=== PATIENT | female | born 1935 | race Two or more races ===

== ENCOUNTER 2018-02-21 13:56 | Inpatient (IN) | payer OTHER ==
[~2018-02-21] VITALS: Ht 152.4 cm; Wt 49.9 kg
[2018-02-21 14:27] LABS: Basophils # (auto) 0 uL; Basophils % (auto) 0.3 % (0.0-2.0); Eosinophils # (auto) 0.1 uL; Eosinophils % (auto) 1.3 % (0.0-7.0); Hematocrit 36.3 % (36.0-46.0); Hemoglobin 12.2 g/dL (12.2-16.2); Lymphocytes # (auto) 0.9 uL; Lymphocytes % (auto) 15.6 % (10.0-50.0); Mean Corpuscular Hemoglobin 31.7 pg (28.0-32.0); Mean Corpuscular Hgb Conc. 33.7 g/dL (32.0-36.0); Mean Corpuscular Volume 93.9 fL (80.0-100.0); Monocytes # (auto) 0.4 uL; Monocytes % (auto) 7.3 % (0.0-12.0); Neutrophils # (auto) 4.4 uL; Neutrophils % (auto) 75.5 % (37.0-80.0); Platelet Count (auto) 161 10^3/uL (140-450); Red Blood Cells 3.86 10^6/uL (4.0-5.20); Red Cell Distribution Width 13.8 % (11.8-14.3); White Blood Cell 5.8 10^3/uL (4.4-10.8)
[2018-02-21 14:49] LABS: BUN/Creatinine Ratio 17.4; Bilirubin, Total 0.4 mg/dL (0.2-1.0); Calcium 8.2 mg/dL (8.5-10.1); Magnesium 2.5 mg/dL (1.6-2.6); Potassium 4.5 mmol/L (3.5-5.1)
[2018-02-21] MEDS ORDERED: BENA10TA9 PO (15:19)
[2018-02-21] MEDS ORDERED: METO-158 PO (15:19)
[2018-02-21] MEDS ORDERED: FURO40TA4 PO (15:19)
[2018-02-21] MEDS ORDERED: DONETAB5 PO (15:19)
[2018-02-21] MEDS ORDERED: ATOR10TA PO (15:20)
[2018-02-21] MEDS ORDERED: SPIR25TA89 PO (15:20)
[2018-02-21 15:52] LABS: INR 0.93 (0.9-1.15); Partial Thromboplastin Time 34.6 sec (23.78-33.04)
[2018-02-21 16:56] LABS: Urine Bacteria NONE SEEN /hpf (None Seen); Urine Blood Negative /uL (Negative); Urine Specific Gravity 1.009 (1.001-1.035); Urine WBC 1 /hpf (0 - 5)
[2018-02-21] MEDS ORDERED: TEMAZEPAM 15 MG CAP PO PRN (22:15)
[2018-02-21] MEDS ORDERED: ONDANSETRON HCL 4 MG/2 ML VIAL IV PRN (22:15)
[2018-02-21] MEDS ORDERED: HYDROcodone-ACET 5/325MG TAB PO PRN (22:15)
[2018-02-21] MEDS ORDERED: SODIUM CHLORIDE 0.9% 250 ML IV ONE (22:15)
[2018-02-21] MEDS ORDERED: ACETAMINOPHEN 500 MG TAB PO PRN (22:15)
[2018-02-21 22:45] VITALS: BP 97/47
[2018-02-22] MEDS ORDERED: SODIUM CHLORIDE 0.9% 250 ML IV ONE (01:45)
[2018-02-22 05:00] VITALS: BP 100/55
[2018-02-22] MEDS ORDERED: FUROSEMIDE 20 MG TAB PO SCH (06:00)
[2018-02-22 07:02] LABS: Basophils # (auto) 0 uL; Basophils % (auto) 0.4 % (0.0-2.0); Eosinophils # (auto) 0.2 uL; Eosinophils % (auto) 2.9 % (0.0-7.0); Hematocrit 35.4 % (36.0-46.0); Hemoglobin 11.9 g/dL (12.2-16.2); Lymphocytes # (auto) 1.1 uL; Lymphocytes % (auto) 19.3 % (10.0-50.0); Mean Corpuscular Hemoglobin 32.3 pg (28.0-32.0); Mean Corpuscular Hgb Conc. 33.7 g/dL (32.0-36.0); Mean Corpuscular Volume 95.7 fL (80.0-100.0); Monocytes # (auto) 0.5 uL; Monocytes % (auto) 8.4 % (0.0-12.0); Neutrophils # (auto) 3.9 uL; Nucleated Red Blood Cells % 0.1 %; Platelet Count (auto) 140 10^3/uL (140-450); Red Cell Distribution Width 14.1 % (11.8-14.3); White Blood Cell 5.7 10^3/uL (4.4-10.8)
[2018-02-22 07:12] LABS: Calcium 7.7 mg/dL (8.5-10.1); Potassium 4.1 mmol/L (3.5-5.1)
[2018-02-22 08:00] VITALS: BP 113/55
[2018-02-22 09:00] VITALS: BP 113/55
[2018-02-22] MEDS ORDERED: METOPROLOL TARTRATE 50 MG TAB PO SCH (10:00)
[2018-02-22] MEDS ORDERED: LACTULOSE 20Gm/30ML SOLN PO SCH (10:00)
[2018-02-22 13:00] VITALS: BP 112/64
[2018-02-22 15:03] VITALS: BP 112/64
[2018-02-22 17:00] VITALS: BP 121/60
[2018-02-22] MEDS ORDERED: ATORVASTATIN 20 MG TAB PO SCH (22:00)
[2018-02-22] MEDS ORDERED: DONEPEZIL HYDROCHLORIDE 5 MG TAB PO SCH (22:00)
[2018-02-27] MEDS ORDERED: PIOG30TA37 PO (12:11)
== END 2018-02-22 17:50 | disposition home or self-care (01) | DRG 314 ==
LOC: ER 13:56 → EDBD 13:56 → OVERFLOW 13:57 → WEST WING 22:41
PROVIDERS: ADMIT Nurse Practitioner Family; ATTEND Nurse Practitioner Family
DX: I95.9 Hypotension, unspecified (principal); I50.43 Acute on chronic combined systolic (congestive) and diastolic (congestive) heart failure; N17.9 Acute kidney failure, unspecified; I13.0 Hypertensive heart and chronic kidney disease with heart failure and stage 1 through stage 4 chronic kidney disease, or unspecified chronic kidney disease; E87.1 Hypo-osmolality and hyponatremia; I25.10 Atherosclerotic heart disease of native coronary artery without angina pectoris; N18.9 Chronic kidney disease, unspecified; Z82.49 Family history of ischemic heart disease and other diseases of the circulatory system; Z95.0 Presence of cardiac pacemaker; Z95.5 Presence of coronary angioplasty implant and graft; F03.90 Unspecified dementia, unspecified severity, without behavioral disturbance, psychotic disturbance, mood disturbance, and anxiety; E86.0 Dehydration; E11.22 Type 2 diabetes mellitus with diabetic chronic kidney disease; Z90.49 Acquired absence of other specified parts of digestive tract; R19.7 Diarrhea, unspecified
CPT/HCPCS: 36415; 51702; 71045; 80048; 80053; 81001; 83036; 83735; 83880; 84484; 85025; 85610; 85730; 93005; 94761

== ENCOUNTER 2018-02-27 11:22 | Inpatient (IN) | payer OTHER ==
[~2018-02-27] VITALS: Ht 157.5 cm; Wt 41.6 kg
[~2018-02-27 11:22] MED LIST: ATOR10TA PO; BENA10TA9 PO; DONETAB5 PO; FURO40TA4 PO; METO-158 PO; SPIR25TA8 PO
[2018-02-27] MEDS ORDERED: SODIUM CHLORIDE 0.9% 1,000 ML IVB ONE (11:58)
[2018-02-27] MEDS ORDERED: APIX5TAB PO (12:07)
[2018-02-27] MEDS ORDERED: SITA50TA PO (12:07)
[2018-02-27] MEDS ORDERED: METF-371 PO (12:07)
[2018-02-27] MEDS ORDERED: BENA20TA14 PO (12:09)
[2018-02-27] MEDS ORDERED: PIOG1TAB37 PO (12:11)
[2018-02-27] MEDS ORDERED: METO-158 PO (12:11)
[2018-02-27] MEDS ORDERED: GLIM4TAB42 PO (12:13)
[2018-02-27 13:32] LABS: Basophils # (auto) 0 uL; Basophils % (auto) 0.3 % (0.0-2.0); Eosinophils # (auto) 0 uL; Hematocrit 35.4 % (36.0-46.0); Hemoglobin 11.6 g/dL (12.2-16.2); Lymphocytes # (auto) 0.8 uL; Lymphocytes % (auto) 13.7 % (10.0-50.0); Mean Corpuscular Hemoglobin 31.2 pg (28.0-32.0); Mean Corpuscular Hgb Conc. 32.9 g/dL (32.0-36.0); Mean Corpuscular Volume 94.9 fL (80.0-100.0); Monocytes # (auto) 0.4 uL; Monocytes % (auto) 6.7 % (0.0-12.0); Neutrophils # (auto) 4.4 uL; Neutrophils % (auto) 79.3 % (37.0-80.0); Platelet Count (auto) 227 10^3/uL (140-450); Red Blood Cells 3.73 10^6/uL (4.0-5.20); Red Cell Distribution Width 13.9 % (11.8-14.3); White Blood Cell 5.6 10^3/uL (4.4-10.8)
[2018-02-27 13:46] LABS: INR 0.92 (0.9-1.15); Partial Thromboplastin Time 35.9 sec (23.78-33.04); Prothrombin Time 9.9 sec (9.27-12.13)
[2018-02-27 13:55] LABS: Albumin 2.9 g/dL (3.4-5.0); BUN/Creatinine Ratio 22.6; Bilirubin, Total 0.3 mg/dL (0.2-1.0); Calcium 8.7 mg/dL (8.5-10.1); Magnesium 2.4 mg/dL (1.6-2.6); Total Protein 7.5 g/dL (6.4-8.2)
[2018-02-27] MEDS ORDERED: cefTRIAXone 1GM/10ml IVPUSH 10 ML IV ONE (16:45)
[2018-02-27] MEDS ORDERED: DEXTROSE (50%) 50ML SYRG IV PRN (16:45)
[2018-02-27] MEDS ORDERED: ACETAMINOPHEN 325 MG TAB PO PRN (17:00)
[2018-02-27] MEDS ORDERED: NITROGLYCERIN 0.4 MG SL TAB SL PRN (17:00)
[2018-02-27] MEDS ORDERED: ONDANSETRON HCL 4 MG/2 ML VIAL IV PRN (17:00)
[2018-02-27] MEDS ORDERED: DOCUSATE SOD 100 MG CAP PO PRN (17:00)
[2018-02-27] MEDS ORDERED: HYDROcodone-ACET 5/325MG TAB PO PRN (17:00)
[2018-02-27] MEDS ORDERED: MORPHINE SULF INJ 2 MG/ML SYRINGE 1ML IV PRN ×2 (17:00)
[2018-02-27] MEDS: InsuLIN REG 1unit/0.01ml Soln (100units/ml) SC SCH ×2 (17:00→22:00)
[2018-02-27] MEDS: ACCU-CHEK COMFORT CURVE STRIP VI SCH ×2 (18:13→22:00)
[2018-02-27] MEDS: FUROSEMIDE 40 MG TAB PO SCH (18:14)
[2018-02-27] MEDS: Glucerna Carbsteady SHAKE Vanilla 8oz PO SCH (19:00)
[2018-02-27 22:00] VITALS: BP 113/49
[2018-02-27] MEDS: SODIUM CHLOR 0.9% PF (SALINE LOCK) 10ML VIAL/SYR IV SCH (23:11)
[2018-02-27] MEDS: APIXABAN 5 MG TAB PO SCH (23:12)
[2018-02-27] MEDS: DONEPEZIL HYDROCHLORIDE 5 MG TAB PO SCH (23:12)
[2018-02-27] MEDS: ATORVASTATIN 20 MG TAB PO SCH (23:13)
[2018-02-28] MEDS: BENAZEPRIL HCL 10 MG TAB PO SCH ×3 (04:23→23:11)
[2018-02-28] MEDS: METOPROLOL TARTRATE 50 MG TAB PO SCH ×3 (04:23→23:09)
[2018-02-28 04:51] VITALS: BP 141/70
[2018-02-28 06:00] LABS: Basophils # (auto) 0 uL; Basophils % (auto) 0.6 % (0.0-2.0); Eosinophils # (auto) 0.1 uL; Eosinophils % (auto) 1.5 % (0.0-7.0); Hematocrit 35.6 % (36.0-46.0); Hemoglobin 12.1 g/dL (12.2-16.2); Lymphocytes # (auto) 0.9 uL; Lymphocytes % (auto) 16.3 % (10.0-50.0); Mean Corpuscular Hemoglobin 32.2 pg (28.0-32.0); Mean Corpuscular Hgb Conc. 33.9 g/dL (32.0-36.0); Mean Corpuscular Volume 95.1 fL (80.0-100.0); Monocytes # (auto) 0.5 uL; Monocytes % (auto) 7.9 % (0.0-12.0); Neutrophils # (auto) 4.2 uL; Neutrophils % (auto) 73.7 % (37.0-80.0); Nucleated Red Blood Cells % 0.1 %; Platelet Count (auto) 234 10^3/uL (140-450); Red Blood Cells 3.75 10^6/uL (4.0-5.20); Red Cell Distribution Width 14.1 % (11.8-14.3); White Blood Cell 5.7 10^3/uL (4.4-10.8)
[2018-02-28] MEDS: FUROSEMIDE 40 MG TAB PO SCH ×2 (06:00→18:00)
[2018-02-28 06:16] LABS: Albumin 2.5 g/dL (3.4-5.0); Calcium 8.7 mg/dL (8.5-10.1); Potassium 3.6 mmol/L (3.5-5.1)
[2018-02-28 06:17] LABS: BUN/Creatinine Ratio 29.1
[2018-02-28 06:20] LABS: Bilirubin, Total 0.2 mg/dL (0.2-1.0); Total Protein 6.8 g/dL (6.4-8.2)
[2018-02-28] MEDS: InsuLIN REG 1unit/0.01ml Soln (100units/ml) SC SCH ×4 (07:00→22:00)
[2018-02-28] MEDS: ACCU-CHEK COMFORT CURVE STRIP VI SCH ×4 (07:00→22:00)
[2018-02-28] MEDS: GLIMEPIRIDE 2 MG TAB PO SCH (07:00)
[2018-02-28] MEDS: SODIUM CHLOR 0.9% PF (SALINE LOCK) 10ML VIAL/SYR IV SCH ×3 (07:32→23:06)
[2018-02-28 08:19] VITALS: BP 104/52
[2018-02-28] MEDS: cefTRIAXone 1GM/10ml IVPUSH 10 ML IV SCH (08:52)
[2018-02-28] MEDS: Glucerna Carbsteady SHAKE Vanilla 8oz PO SCH ×3 (08:58→19:17)
[2018-02-28] MEDS: JANUVIA 50 MG PO SCH (09:16)
[2018-02-28] MEDS ORDERED: ASPirin-EC 81 mg tab PO SCH (10:00)
[2018-02-28] MEDS: SPIRONOLACTONE 25 MG TAB PO SCH (10:00)
[2018-02-28] MEDS ORDERED: PIOGLITAZONE HYDROCHLORIDE 30 MG TAB PO SCH (10:00)
[2018-02-28] MEDS ORDERED: ENOXAPARIN SOD 30 MG/0.3 ML SYRINGE SC SCH (10:00)
[2018-02-28] MEDS: FAMOTIDINE 20 MG TAB PO SCH (10:00)
[2018-02-28] MEDS: MULTIPLE VITAMIN TAB PO SCH (10:48)
[2018-02-28] MEDS: APIXABAN 5 MG TAB PO SCH ×2 (10:48→23:07)
[2018-02-28 12:07] LABS: Urine Bacteria NONE SEEN /hpf (None Seen); Urine Blood 1+ /uL (Negative); Urine Mucus FEW (None Seen); Urine Specific Gravity 1.016 (1.001-1.035); Urine WBC 464 /hpf (0 - 5); Urine WBC Clumps PRESENT /hpf (None Seen)
[2018-02-28 13:54] VITALS: BP 123/61
[2018-02-28 16:25] VITALS: BP 101/54
[2018-02-28 22:00] VITALS: BP 123/59
[2018-02-28] MEDS: DONEPEZIL HYDROCHLORIDE 5 MG TAB PO SCH (23:06)
[2018-02-28] MEDS: ATORVASTATIN 20 MG TAB PO SCH (23:07)
[2018-03-01] VITALS (7 sets, daily range): BP systolic 120–139; BP diastolic 50–76
[2018-03-01] MEDS: SODIUM CHLOR 0.9% PF (SALINE LOCK) 10ML VIAL/SYR IV SCH ×3 (06:18→23:26)
[2018-03-01] MEDS: FUROSEMIDE 40 MG TAB PO SCH ×2 (06:19→19:28)
[2018-03-01] MEDS: ACCU-CHEK COMFORT CURVE STRIP VI SCH ×4 (07:00→22:00)
[2018-03-01] MEDS: InsuLIN REG 1unit/0.01ml Soln (100units/ml) SC SCH ×4 (07:00→22:00)
[2018-03-01 07:10] LABS: Basophils # (auto) 0 uL; Basophils % (auto) 0.4 % (0.0-2.0); Eosinophils # (auto) 0.1 uL; Eosinophils % (auto) 1.9 % (0.0-7.0); Hemoglobin 12.2 g/dL (12.2-16.2); Lymphocytes % (auto) 20.7 % (10.0-50.0); Mean Corpuscular Hemoglobin 33.1 pg (28.0-32.0); Mean Corpuscular Hgb Conc. 34.9 g/dL (32.0-36.0); Mean Corpuscular Volume 94.8 fL (80.0-100.0); Monocytes # (auto) 0.4 uL; Monocytes % (auto) 7.8 % (0.0-12.0); Neutrophils # (auto) 3.5 uL; Neutrophils % (auto) 69.2 % (37.0-80.0); Platelet Count (auto) 240 10^3/uL (140-450); Red Blood Cells 3.69 10^6/uL (4.0-5.20); Red Cell Distribution Width 13.9 % (11.8-14.3); White Blood Cell 5.1 10^3/uL (4.4-10.8)
[2018-03-01 07:33] LABS: BUN/Creatinine Ratio 35.6; Calcium 8.6 mg/dL (8.5-10.1); Potassium 3.8 mmol/L (3.5-5.1)
[2018-03-01] MEDS: GLIMEPIRIDE 2 MG TAB PO SCH (07:45)
[2018-03-01] MEDS: JANUVIA 50 MG PO SCH (10:00)
[2018-03-01] MEDS: Glucerna Carbsteady SHAKE Vanilla 8oz PO SCH ×3 (11:08→19:27)
[2018-03-01] MEDS: SPIRONOLACTONE 25 MG TAB PO SCH (11:09)
[2018-03-01] MEDS: APIXABAN 5 MG TAB PO SCH ×2 (11:09→23:27)
[2018-03-01] MEDS: ASPirin-EC 81 mg tab PO SCH (11:09)
[2018-03-01] MEDS: cefTRIAXone 1GM/10ml IVPUSH 10 ML IV SCH (11:09)
[2018-03-01] MEDS: METOPROLOL TARTRATE 50 MG TAB PO SCH ×2 (11:10→23:28)
[2018-03-01] MEDS: BENAZEPRIL HCL 10 MG TAB PO SCH ×2 (11:10→23:29)
[2018-03-01] MEDS: FAMOTIDINE 20 MG TAB PO SCH (11:11)
[2018-03-01] MEDS: MULTIPLE VITAMIN TAB PO SCH (11:11)
[2018-03-01] MEDS: DONEPEZIL HYDROCHLORIDE 5 MG TAB PO SCH (23:26)
[2018-03-01] MEDS: ATORVASTATIN 20 MG TAB PO SCH (23:27)
[2018-03-02 05:30] VITALS: BP 160/58
[2018-03-02] MEDS: SODIUM CHLOR 0.9% PF (SALINE LOCK) 10ML VIAL/SYR IV SCH ×3 (06:09→22:00)
[2018-03-02] MEDS: FUROSEMIDE 40 MG TAB PO SCH ×2 (06:09→18:00)
[2018-03-02 06:53] LABS: Basophils # (auto) 0 uL; Basophils % (auto) 0.4 % (0.0-2.0); Eosinophils # (auto) 0.1 uL; Eosinophils % (auto) 2.3 % (0.0-7.0); Hematocrit 38.7 % (36.0-46.0); Hemoglobin 13.1 g/dL (12.2-16.2); Lymphocytes # (auto) 1.4 uL; Lymphocytes % (auto) 20.7 % (10.0-50.0); Mean Corpuscular Hemoglobin 32.2 pg (28.0-32.0); Mean Corpuscular Hgb Conc. 33.8 g/dL (32.0-36.0); Mean Corpuscular Volume 95.3 fL (80.0-100.0); Monocytes # (auto) 0.7 uL; Monocytes % (auto) 9.9 % (0.0-12.0); Neutrophils # (auto) 4.4 uL; Neutrophils % (auto) 66.7 % (37.0-80.0); Nucleated Red Blood Cells % 0.1 %; Platelet Count (auto) 258 10^3/uL (140-450); Red Blood Cells 4.06 10^6/uL (4.0-5.20); Red Cell Distribution Width 13.8 % (11.8-14.3); White Blood Cell 6.6 10^3/uL (4.4-10.8)
[2018-03-02] MEDS: ACCU-CHEK COMFORT CURVE STRIP VI SCH ×4 (07:00→22:17)
[2018-03-02] MEDS: InsuLIN REG 1unit/0.01ml Soln (100units/ml) SC SCH ×4 (07:00→22:17)
[2018-03-02 07:13] LABS: Calcium 8.5 mg/dL (8.5-10.1); Potassium 3.8 mmol/L (3.5-5.1)
[2018-03-02] MEDS: GLIMEPIRIDE 2 MG TAB PO SCH (07:46)
[2018-03-02 08:59] VITALS: BP 161/65
[2018-03-02] MEDS: FAMOTIDINE 20 MG TAB PO SCH (09:47)
[2018-03-02] MEDS: ASPirin-EC 81 mg tab PO SCH (09:47)
[2018-03-02] MEDS: APIXABAN 5 MG TAB PO SCH ×2 (09:47→22:16)
[2018-03-02] MEDS: METOPROLOL TARTRATE 50 MG TAB PO SCH ×2 (09:47→22:17)
[2018-03-02] MEDS: MULTIPLE VITAMIN TAB PO SCH (09:48)
[2018-03-02] MEDS: SPIRONOLACTONE 25 MG TAB PO SCH (09:50)
[2018-03-02] MEDS: cefTRIAXone 1GM/10ml IVPUSH 10 ML IV SCH (09:51)
[2018-03-02] MEDS: JANUVIA 50 MG PO SCH (10:00)
[2018-03-02] MEDS: BENAZEPRIL HCL 10 MG TAB PO SCH ×2 (10:00→22:16)
[2018-03-02 13:00] VITALS: BP 148/60
[2018-03-02 17:30] VITALS: BP 97/49
[2018-03-02] MEDS: Glucerna Carbsteady SHAKE Vanilla 8oz PO SCH ×3 (18:28→18:32)
[2018-03-02 21:49] VITALS: BP 118/55
[2018-03-02] MEDS: DONEPEZIL HYDROCHLORIDE 5 MG TAB PO SCH (22:16)
[2018-03-02] MEDS: ATORVASTATIN 20 MG TAB PO SCH (22:16)
[2018-03-03 05:08] VITALS: BP 121/59
[2018-03-03 05:54] LABS: Basophils # (auto) 0 uL; Basophils % (auto) 0.5 % (0.0-2.0); Eosinophils # (auto) 0.1 uL; Hematocrit 35.5 % (36.0-46.0); Hemoglobin 12.2 g/dL (12.2-16.2); Lymphocytes # (auto) 1.1 uL; Lymphocytes % (auto) 16.7 % (10.0-50.0); Mean Corpuscular Hemoglobin 32.4 pg (28.0-32.0); Mean Corpuscular Hgb Conc. 34.4 g/dL (32.0-36.0); Mean Corpuscular Volume 94.2 fL (80.0-100.0); Monocytes # (auto) 0.5 uL; Neutrophils # (auto) 5.1 uL; Neutrophils % (auto) 73.8 % (37.0-80.0); Platelet Count (auto) 294 10^3/uL (140-450); Red Blood Cells 3.77 10^6/uL (4.0-5.20); Red Cell Distribution Width 13.9 % (11.8-14.3); White Blood Cell 6.9 10^3/uL (4.4-10.8)
[2018-03-03] MEDS: SODIUM CHLOR 0.9% PF (SALINE LOCK) 10ML VIAL/SYR IV SCH (06:20)
[2018-03-03] MEDS: ACCU-CHEK COMFORT CURVE STRIP VI SCH ×2 (06:21→11:37)
[2018-03-03] MEDS: FUROSEMIDE 40 MG TAB PO SCH (06:21)
[2018-03-03] MEDS: InsuLIN REG 1unit/0.01ml Soln (100units/ml) SC SCH (06:21)
[2018-03-03] MEDS: GLIMEPIRIDE 2 MG TAB PO SCH (06:21)
[2018-03-03 06:28] LABS: Potassium 4.1 mmol/L (3.5-5.1)
[2018-03-03 06:33] LABS: BUN/Creatinine Ratio 38.6; Calcium 8.7 mg/dL (8.5-10.1)
[2018-03-03] MEDS: Glucerna Carbsteady SHAKE Vanilla 8oz PO SCH (08:24)
[2018-03-03 08:59] VITALS: BP 130/56
[2018-03-03] MEDS: cefTRIAXone 1GM/10ml IVPUSH 10 ML IV SCH (09:04)
[2018-03-03] MEDS: ASPirin-EC 81 mg tab PO SCH (09:14)
[2018-03-03] MEDS: FAMOTIDINE 20 MG TAB PO SCH (09:14)
[2018-03-03] MEDS: SPIRONOLACTONE 25 MG TAB PO SCH (09:14)
[2018-03-03] MEDS: JANUVIA 50 MG PO SCH (09:14)
[2018-03-03] MEDS: APIXABAN 5 MG TAB PO SCH (09:14)
[2018-03-03] MEDS: MULTIPLE VITAMIN TAB PO SCH (09:14)
[2018-03-03] MEDS: METOPROLOL TARTRATE 50 MG TAB PO SCH (10:40)
[2018-03-03] MEDS: BENAZEPRIL HCL 10 MG TAB PO SCH (10:40)
[2018-03-03 12:44] VITALS: BP 101/44
== END 2018-03-03 12:20 | disposition home health service (06) | DRG 682 ==
LOC: EDBD 11:22 → ER 11:22 → TELE 11:23 → TELE-WESTW 18:50
PROVIDERS: ADMIT Internal Medicine; ATTEND Internal Medicine Pulmonary Disease
DX: N17.0 Acute kidney failure with tubular necrosis (principal); G93.41 Metabolic encephalopathy; E43 Unspecified severe protein-calorie malnutrition; N39.0 Urinary tract infection, site not specified; Z68.1 Body mass index [BMI] 19.9 or less, adult; N18.4 Chronic kidney disease, stage 4 (severe); E11.21 Type 2 diabetes mellitus with diabetic nephropathy; I12.9 Hypertensive chronic kidney disease with stage 1 through stage 4 chronic kidney disease, or unspecified chronic kidney disease; E11.22 Type 2 diabetes mellitus with diabetic chronic kidney disease; E11.51 Type 2 diabetes mellitus with diabetic peripheral angiopathy without gangrene; D63.8 Anemia in other chronic diseases classified elsewhere; E11.649 Type 2 diabetes mellitus with hypoglycemia without coma; H53.8 Other visual disturbances; F03.90 Unspecified dementia, unspecified severity, without behavioral disturbance, psychotic disturbance, mood disturbance, and anxiety; I25.10 Atherosclerotic heart disease of native coronary artery without angina pectoris; Z79.01 Long term (current) use of anticoagulants; Z79.899 Other long term (current) drug therapy; Z82.3 Family history of stroke; Z82.49 Family history of ischemic heart disease and other diseases of the circulatory system; Z83.3 Family history of diabetes mellitus; Z86.73 Personal history of transient ischemic attack (TIA), and cerebral infarction without residual deficits; Z95.5 Presence of coronary angioplasty implant and graft; Z95.0 Presence of cardiac pacemaker; Z90.49 Acquired absence of other specified parts of digestive tract
CPT/HCPCS: 36415; 70450; 71045; 80048; 80053; 81001; 82962; 83036; 83735; 84484; 85025; 85610; 85730; 87081; 87086; 92610; 93005; 93886; 95819; 96361; 96374; 96376; 97116; 97163; 97530; A6257; J0696; J1815

== ENCOUNTER 2018-03-05 20:33 | Emergency (ER) | payer OTHER ==
[~2018-03-05] VITALS: Ht 144.8 cm; Wt 59.0 kg
[~2018-03-05 20:33] MED LIST changes: +APIX5TAB PO; -BENA10TA9 PO; +BENA20TA14 PO; +GLIM4TAB42 PO; +METF-371 PO; +SITA50TA PO
[2018-03-05] MEDS ORDERED: DEXTROSE (50%) 50ML SYRG IV ONE (20:45)
[2018-03-05] MEDS ORDERED: ONDANSETRON HCL 4 MG/2 ML VIAL ONE (20:56)
[2018-03-05] MEDS ORDERED: ONDANSETRON HCL 4 MG/2 ML VIAL IV ONE (21:00)
[2018-03-05] MEDS: D5W/SOD CHLO 0.9% 1,000 ML IV SCH (21:00)
[2018-03-05 22:34] LABS: Basophils # (auto) 0 uL; Basophils % (auto) 0.6 % (0.0-2.0); Eosinophils # (auto) 0.1 uL; Eosinophils % (auto) 1.6 % (0.0-7.0); Hematocrit 34.4 % (36.0-46.0); Hemoglobin 11.6 g/dL (12.2-16.2); Lymphocytes # (auto) 1.1 uL; Lymphocytes % (auto) 20.4 % (10.0-50.0); Mean Corpuscular Hgb Conc. 33.7 g/dL (32.0-36.0); Mean Corpuscular Volume 94.9 fL (80.0-100.0); Monocytes # (auto) 0.5 uL; Monocytes % (auto) 8.3 % (0.0-12.0); Neutrophils # (auto) 3.9 uL; Neutrophils % (auto) 69.1 % (37.0-80.0); Platelet Count (auto) 349 10^3/uL (140-450); Red Blood Cells 3.63 10^6/uL (4.0-5.20); Red Cell Distribution Width 13.7 % (11.8-14.3); White Blood Cell 5.6 10^3/uL (4.4-10.8)
[2018-03-05 22:36] LABS: Albumin 2.5 g/dL (3.4-5.0); BUN/Creatinine Ratio 26.9; Bilirubin, Total 0.2 mg/dL (0.2-1.0); Calcium 8.7 mg/dL (8.5-10.1); Potassium 4.6 mmol/L (3.5-5.1); Total Protein 6.9 g/dL (6.4-8.2)
[2018-03-06] MEDS: D5W/SOD CHLO 0.9% 1,000 ML IV SCH (07:06)
[2018-03-06 10:00] VITALS: BP 121/55
== END 2018-03-06 11:39 | disposition home or self-care (01) ==
LOC: ER 20:35
DX: E11.649 Type 2 diabetes mellitus with hypoglycemia without coma (principal); K31.84 Gastroparesis; E86.0 Dehydration; R51 Headache; E11.22 Type 2 diabetes mellitus with diabetic chronic kidney disease; I12.9 Hypertensive chronic kidney disease with stage 1 through stage 4 chronic kidney disease, or unspecified chronic kidney disease; N18.9 Chronic kidney disease, unspecified; Z86.73 Personal history of transient ischemic attack (TIA), and cerebral infarction without residual deficits; Z79.4 Long term (current) use of insulin; Z90.49 Acquired absence of other specified parts of digestive tract; Z96.89 Presence of other specified functional implants
CPT/HCPCS: 36415; 70450; 71045; 74176; 80053; 82962; 83605; 83690; 85025; 93005; 96365; 96366; 96375; 99285; J2405; J7042

== ENCOUNTER 2018-06-29 14:46 | Inpatient (IN) | payer OTHER | END 2018-07-09 17:00 | disposition home health service (06) | LOC: ER 14:46 → WEST WING 06-30 08:17 → EAST 07-06 12:39 → OVERFLOW 23:21 → WEST WING 06-30 08:19 | DX: N39.0 Urinary tract infection, site not specified (principal); E43 Unspecified severe protein-calorie malnutrition; G92 Toxic encephalopathy; E46 Unspecified protein-calorie malnutrition; E87.1 Hypo-osmolality and hyponatremia; E86.0 Dehydration; B96.1 Klebsiella pneumoniae [K. pneumoniae] as the cause of diseases classified elsewhere; N18.9 Chronic kidney disease, unspecified; I25.10 Atherosclerotic heart disease of native coronary artery without angina pectoris ==

== ENCOUNTER 2019-04-27 18:07 | Emergency (ER) | payer OTHER ==
[~2019-04-27] VITALS: Ht 149.9 cm; Wt 40.8 kg
[~2019-04-27 18:07] MED LIST changes: -APIX5TAB PO; -FURO40TA4 PO; -GLIM4TAB42 PO; -METO-158 PO; -SPIR25TA8 PO
[2019-04-27 18:22] VITALS: BP 171/73
[2019-04-27 21:42] LABS: Basophils # (auto) 0 uL; Basophils % (auto) 0.5 % (0.0-2.0); Eosinophils # (auto) 0 uL; Eosinophils % (auto) 0.1 % (0.0-7.0); Hematocrit 42.5 % (36.0-46.0); Hemoglobin 14.6 g/dL (12.2-16.2); Lymphocytes # (auto) 1.4 uL; Lymphocytes % (auto) 16.4 % (10.0-50.0); Mean Corpuscular Hemoglobin 33.6 pg (28.0-32.0); Mean Corpuscular Hgb Conc. 34.4 g/dL (32.0-36.0); Mean Corpuscular Volume 97.5 fL (80.0-100.0); Monocytes # (auto) 0.6 uL; Monocytes % (auto) 6.6 % (0.0-12.0); Neutrophils # (auto) 6.5 uL; Neutrophils % (auto) 76.4 % (37.0-80.0); Nucleated Red Blood Cells % 0.1 %; Platelet Count (auto) 142 10^3/uL (140-450); Red Blood Cells 4.36 10^6/uL (4.0-5.20); Red Cell Distribution Width 12.9 % (11.8-14.3); White Blood Cell 8.5 10^3/uL (4.4-10.8)
[2019-04-27 21:54] LABS: INR 0.99 (0.9-1.15); Partial Thromboplastin Time 27.9 sec (23.64-32.05)
[2019-04-27 22:03] LABS: Albumin 3.1 g/dL (3.4-5.0); Calcium 8.6 mg/dL (8.5-10.1); Potassium 4.5 mmol/L (3.5-5.1)
[2019-04-27 22:08] LABS: Bilirubin, Total 0.3 mg/dL (0.2-1.0); Total Protein 6.8 g/dL (6.4-8.2)
== END 2019-04-27 21:30 | disposition left against medical advice (07) ==
LOC: ER 18:07
DX: S42.331A Displaced oblique fracture of shaft of humerus, right arm, initial encounter for closed fracture (principal); S42.201A Unspecified fracture of upper end of right humerus, initial encounter for closed fracture; R93.0 Abnormal findings on diagnostic imaging of skull and head, not elsewhere classified; W18.39XA Other fall on same level, initial encounter; Y93.01 Activity, walking, marching and hiking; Y92.89 Other specified places as the place of occurrence of the external cause; Y99.8 Other external cause status
CPT/HCPCS: 36415; 70450; 73030; 80053; 85025; 85610; 85730

== ENCOUNTER 2019-04-30 19:41 | Emergency (ER) | payer OTHER ==
[~2019-04-30] VITALS: Ht 144.8 cm; Wt 40.8 kg
[2019-05-01] VITALS: BP 144/58
== END 2019-05-01 00:51 | disposition home or self-care (01) ==
LOC: ER 19:41
DX: S42.331A Displaced oblique fracture of shaft of humerus, right arm, initial encounter for closed fracture (principal); F03.90 Unspecified dementia, unspecified severity, without behavioral disturbance, psychotic disturbance, mood disturbance, and anxiety; E11.22 Type 2 diabetes mellitus with diabetic chronic kidney disease; N18.9 Chronic kidney disease, unspecified; I10 Essential (primary) hypertension; Z86.73 Personal history of transient ischemic attack (TIA), and cerebral infarction without residual deficits; Z90.49 Acquired absence of other specified parts of digestive tract; Z95.0 Presence of cardiac pacemaker; W18.39XA Other fall on same level, initial encounter; Y93.89 Activity, other specified; Y92.89 Other specified places as the place of occurrence of the external cause; Y99.8 Other external cause status
CPT/HCPCS: 29105; 93005